=== PATIENT | male | born 1970 | race Caucasian/White ===

== ENCOUNTER 2021-05-04 18:41 | Emergency (ER) | payer SELFPAY ==
[~2021-05-04 18:41] MED LIST: AZITHROMYCIN250 MG PO; CLEOCIN HCL300 MG PO; CLEOCIN T30 GM TP; DECADRON6 MG PO; IBUPROFEN800 MG PO; OMNICEF 300 MG300 MG PO; ZOFRAN ODT 4 MG4 MG PO
[2021-05-04] MEDS ORDERED: IBUPROFEN600 MG PO (20:24)
== END 2021-05-04 20:30 | disposition home or self-care (01) ==
LOC: ER1 18:41
DX: S93.401A Sprain of unspecified ligament of right ankle, initial encounter (principal); S83.91XA Sprain of unspecified site of right knee, initial encounter; I10 Essential (primary) hypertension; E11.9 Type 2 diabetes mellitus without complications; E78.5 Hyperlipidemia, unspecified; X50.1XXA Overexertion from prolonged static or awkward postures, initial encounter
CPT/HCPCS: 73562; 73590; 73610; 99283

== ENCOUNTER → 2021-08-28 | Outpatient (CLI) | payer OTHER ==
[~2021-08-28] MED LIST changes: +IBUPROFEN600 MG PO
== END ==
LOC: HEART 5 08-15 09:15
DX: R07.9 Chest pain, unspecified (principal); E11.9 Type 2 diabetes mellitus without complications; I08.3 Combined rheumatic disorders of mitral, aortic and tricuspid valves
CPT/HCPCS: 78452; 93306; A9502; J2785

== ENCOUNTER → 2021-09-28 | Outpatient (CLI) | payer OTHER ==
[~2021-09-28] VITALS: Ht 175.3 cm; Wt 125.2 kg
[~2021-09-28] MED LIST changes: +ETODOLAC500 MG PO; +GLUCOPHAGE 500500 MG PO; +HYDROCHLOROTHIA50 MG PO; +ISOSORBIDE MONO30 MG PO; +LASIX 40 MG TAB40 MG PO; +LIPITOR80 MG PO; +NITROSTAT0.4 MG SL; +TRANDATE 200 M200 MG PO; +VAZALORE81 MG PO; +ZESTRIL 40 MG T40 MG PO
[2021-09-28 08:15] LABS: HEMOGLOBIN 13.6 gm/dl (14.0-17.5); RED BLOOD COUNT 4.41 M/UL (4.20-5.50); WHITE BLOOD COUNT 5.3 K/UL (4.5-11.0)
[2021-09-28 08:16] LABS: BUN/CREATININE RATIO 22 (0-10)
== END | disposition home or self-care (01) ==
LOC: CATH 06:34
PROVIDERS: Internal Medicine Cardiovascular Disease
DX: I25.10 Atherosclerotic heart disease of native coronary artery without angina pectoris (principal); I10 Essential (primary) hypertension; M10.9 Gout, unspecified; E78.00 Pure hypercholesterolemia, unspecified; E78.5 Hyperlipidemia, unspecified; E11.9 Type 2 diabetes mellitus without complications; Z79.82 Long term (current) use of aspirin; Z79.84 Long term (current) use of oral hypoglycemic drugs; Z79.899 Other long term (current) drug therapy; Z82.49 Family history of ischemic heart disease and other diseases of the circulatory system; Z87.891 Personal history of nicotine dependence
CPT/HCPCS: 36415; 71045; 80048; 85025; 85610; 93005; 99152; 99153; C1769; C1894; J1644; J2250; J3010; J7030; Q9967